=== PATIENT | female | born 1945 | race Caucasian/White ===

== ENCOUNTER 2023-04-09 14:02 | Emergency (ER) | payer OTHER ==
[2023-04-09] MEDS ORDERED: HYDROCODONE/APAP 10/325 TAB ONE (16:07)
--- NOTE | 2023-04-09 16:33 | RAD REPORT ---
EXAM DESCRIPTION: CTSpine Lumbar Wo Con04/09/2023 4:13 pm CLINICAL HISTORY: Back pain numbness COMPARISON: None TECHNIQUE: Computed axial tomography lumbar spine was obtained with coronal and sagittal reconstruct ion. All CT scans are performed using dose optimization technique as appropriate and may include automated exposure control or mA/KV adjustment according to patient size. FINDINGS: Mild compression deformity L1 vertebral body probably chronic. Vacuum phenomena involves most of the discs. Slight posterior subluxation L1 on L2. Mild spondylosis L1-2 Mild moderate spondylosis L2-3 Disc bulge, ligamentum flavum and facet hypertrophy L3-4. Thecal sac measures 5.5 millimeters. Modera te narrowing of the right mild narrowing left neural foramina Mild anterior subluxation L4 on L5. Disc bulge, ligamentum flavum and facet hypertrophy. The thecal s ac measures 4 millimeters. Right lateral disc herniation. Marked narrowing right neural foramina Disc bulge and facet hypertrophy L5-S1. Moderate to marked narrowing of the neural foramina. Epidural lipomatosis. Thecal sac measures approximately 4 millimeters transversely. IMPRESSION: Spondylosis L3-4 resulting in moderate to marked central spinal stenosis. Mild anterior subluxation L4 on L5. Spondylosis. Marked central spinal stenosis L4-5 Right lateral disc herniation L4-5 Spondylosis L5-S1 in combination with epidural lipomatosis result central spinal stenosis Nonemergent MRI would be helpful for further evaluation
--- NOTE | 2023-04-09 16:38 | RAD REPORT ---
EXAM DESCRIPTION: CT - Pelvis Wo Cont - 04/09/2023 4:16 pm CLINICAL HISTORY: Right hip pain and numbness COMPARISON: None. TECHNIQUE: Computed axial tomography of the pelvis was obtained. Coronal and sagittal reconstruction performed All CT scans are performed using dose optimization technique as appropriate and may include automated exposure control or mA/KV adjustment according to patient size. FINDINGS: No fracture is noted. No dislocation No significant hip joint effusion. No significant musculature or subcutaneous abnormality Mild osteoarthritis involves the hips IMPRESSION: No fracture seen
--- NOTE | 2023-04-09 17:14 | ER ---
Nurse's Notes [facility] Name: Rosa Snowden Age: 77 yrs Sex: Female : 1945 Arrival Date: 04/09/2023 Time: 14:02 Bed 17 Private MD: Diagnosis: Spinal stenosis, lumbosacral region;Lumbago with sciatica Presentation: 04/09 14:10 Chief complaint: Patient states: "I have sever spinal stenosis and my body is just cm10 shutting down from the bottom up. I have a 2inch separation on my right hip and my butt cheek is hurting.". Coronavirus screen: Vaccine status: Patient reports receiving the 2nd dose of the covid vaccine. Ebola Screen: Patient denies travel to an Ebola-affected area in the 21 days before illness onset. No symptoms or risks identified at this time. Initial Sepsis Screen: Does the patient meet any 2 criteria? No. Patient's initial sepsis screen is negative. Does the patient have a suspected source of infection? No. Patient's initial sepsis screen is negative. Risk Assessment: Do you want to hurt yourself or someone else? Patient reports no desire to harm self or others. Onset of symptoms was April 09, 2023. 14:10 Method Of Arrival: Wheelchair cm10 14:10 Acuity: AMY 3 cm10 Triage Assessment: 14:13 General: Appears in no apparent distress. comfortable, Behavior is calm, cooperative. cm10 Pain: Complains of pain in right gluteus karo and low back area. 14:14 Neuro: No deficits noted. Level of Consciousness is awake, alert, obeys commands, cm10 Oriented to person, place, time, situation. Respiratory: No deficits noted. Airway is patent Respiratory effort is even, unlabored, Respiratory pattern is regular, symmetrical. Musculoskeletal: No deficits noted. Historical: - Allergies: 14:12 Codeine; cm10 14:12 Demerol; cm10 - PMHx: 14:12 spinal stenosis; High Cholesterol; Hypertensive disorder; Hypothyroidism; cm10 - PSHx: 14:12 Appendectomy; Total abdominal hysterectomy; cm10 - Immunization history:: Adult Immunizations unknown. - Social history:: Smoking status: Patient denies any tobacco usage or history of. Screenin:[address] [facility] ED Fall Risk Assessment (Adult) Score/Fall Risk Level 0 - 2 = Low Risk. Abuse eh3 screen: Denies threats or abuse. Denies injuries from another. Nutritional screening: No deficits noted. Tuberculosis screening: No symptoms or risk factors identified. Assessment: 15:44 General: Appears in no apparent distress. uncomfortable, Behavior is calm, cooperative, eh3 appropriate for age. Pain: Complains of pain in right gluteus karo and low back area. Neuro: Level of Consciousness is awake, alert, obeys commands, Oriented to person, place, time, situation. Cardiovascular: Capillary refill < 3 seconds Patient's skin is warm and dry. Respiratory: Airway is patent Respiratory effort is even, unlabored, Respiratory pattern is regular, symmetrical. GI: Abdomen is round non-distended. Derm: Skin is pink, warm \\T\\ dry. Musculoskeletal: Circulation, motion, and sensation intact. 16:45 Reassessment: Patient appears in no apparent distress at this time. Patient and/or eh3 family updated on plan of care and expected duration. Pain level reassessed. Patient is alert, oriented x 3, equal unlabored respirations, skin warm/dry/pink. Vital Signs: 14:10 BP 152 / 63; Pulse 59; Resp 18 S; Temp 97.9; Pulse Ox 99% on R/A; Weight 81.19 kg; cm10 Height 4 ft. 11 in. ; Pain 10/10; 16:45 BP 146 / 66; Pulse 58; Resp 18; Pulse Ox 98% on R/A; eh3 14:10 Body Mass Index 36.15 (81.19 kg, 149.86 cm) cm10 14:10 Pain Scale: Adult cm10 ED Course: 14:05 Patient arrived in ED. mr 14:12 Triage completed. cm10 14:15 Arm band placed on Patient placed in an exam room, on a stretcher. cm10 14:21 Rob Shetty MD is Attending Physician. rn 14:22 Jenni Rene PA-C is PHCP. sb4 14:22 Rob Shetty MD is Attending Physician. sb4 15:44 Shae Grant, MIREILLE is Primary Nurse. eh3 15:44 Patient has correct armband on for positive identification. Bed in low position. Call eh3 light in reach. Side rails up X2. Provided Education on: Use of call blake. Pulse ox on. NIBP on. 16:15 CT Lumbar Spine Wo Con In Process Unspecified. EDMS 16:15 CT Pelvis wo Cont In Process Unspecified. EDMS 17:12 Adriano Torres DO is Referral Physician. sb4 17:36 No provider procedures requiring assistance completed. Patient did not have IV access eh3 during this emergency room visit. Administered Medications: 16:00 Drug: [place] PO 10 mg-325 mg 1 tabs Route: PO; eh3 16:52 Follow up: Response: No adverse reaction eh3 17:00 Drug: Dexamethasone IM 10 mg Route: IM; Site: right ventrogluteal; eh3 17:35 Follow up: Response: No adverse reaction eh3 17:00 Drug: Ketorolac IM 30 mg Route: IM; Site: right ventrogluteal; eh3 17:35 Follow up: Response: No adverse reaction eh3 Medication: 17:36 VIS not applicable for this client. eh3 Outcome: 17:13 Discharge ordered by MD. sb4 17:36 Discharged to home via wheelchair. eh3 17:36 Condition: stable 17:36 Discharge instructions given to patient, Instructed on discharge instructions, follow up and referral plans. medication usage, Demonstrated understanding of instructions, follow-up care, medications, Prescriptions given X 3. 17:37 Patient left the ED. eh3 Signatures: Dispatcher [employer] MICHAELMT Ari Chantell Rob Vieira MD MD rn Hall, Erin, RN RN eh3 Jenni Rene PAJaquiC PA-Sena sb4 Aneta Kang RN RN cm10 Corrections: (The following items were deleted from the chart) 14:15 14:13 Pain: Complains of pain in right gluteus karo cm10 cm10
--- NOTE | 2023-04-09 17:14 | EDPHYS ---
Physician Documentation [facility] Name: Rosa Snowden Age: 77 yrs Sex: Female : 1945 Arrival Date: 04/09/2023 Time: 14:02 Bed 17 Private MD: ED Physician Rob Shetty HPI: 04/09 17:20 This 77 yrs old Female presents to ER via Wheelchair with complaints of Back Pain, sb4 Trouble Walking. 17:20 The patient presents with pain that is chronic, with no known mechanism of injury, and sb4 weakness, secondary to pain. The symptoms are located in the low back. Onset: The symptoms/episode began/occurred and became worse today. The pain radiates to the right leg and left leg. Associated signs and symptoms: Pertinent positives: numbness, weakness, Pertinent negatives: incontinence. The problem was sustained from a chronic condition, degenerative joint disease, the patient has known disc disease, without known cause. Modifying factors: The patient symptoms are alleviated by hydrocodone, rest, the patient symptoms are aggravated by standing, walking. The patient has experienced similar episodes in the past, chronically, but today's symptoms are worse, more painful. The patient has not recently seen a physician. 17:24 patient reports history of severe spinal stenosis. sees pain management. was receiving sb4 injections that were helping but her pain management doctor told her she could not have anymore until next year. she states her pain has become progressively worse, to the point where she feels she cannot walk and her legs go numb. she denies any bowel/bladder incontinence. Historical: - Allergies: 14:12 Codeine; cm10 14:12 Demerol; cm10 - PMHx: 14:12 spinal stenosis; High Cholesterol; Hypertensive disorder; Hypothyroidism; cm10 - PSHx: 14:12 Appendectomy; Total abdominal hysterectomy; cm10 - Immunization history:: Adult Immunizations unknown. - Social history:: Smoking status: Patient denies any tobacco usage or history of. ROS: 17:24 Constitutional: Negative for fever, chills, and weight loss. sb4 17:24 Back: Positive for pain at rest, pain with movement, radiated pain, of the lumbar area, left low back and right low back. 17:24 Neuro: Positive for numbness, weakness, Negative for altered mental status, dizziness, syncope. 17:24 All other systems are negative. Exam: 17:24 Constitutional: This is a well developed, well nourished patient who is awake, alert, sb4 and in no acute distress. 17:24 Back: pain, that is moderate, of the lumbar area, left low back and right low back, ROM is painful, with all movement, normal spinal alignment noted, CVA tenderness, is absent, vertebral tenderness, is not appreciated, muscle spasm, is not present, Straight leg raises: pain bilaterally. 17:24 Neuro: Orientation: is normal, appropriate for stated age, to person, place, time \T\ situation. Mentation: is normal, appropriate for stated age, able to follow commands, Memory: is normal, appropriate for stated age, Cranial nerves: grossly normal, is grossly normal based on the patient's age, no acute changes, Cerebellar function: is grossly normal, is grossly normal based on the patient's age, Motor: is normal, is grossly normal based on the patient's age, no acute changes, moves all fours, Sensation: is normal, no obvious gross deficits, Gait: limited by pain. Vital Signs: 14:10 BP 152 / 63; Pulse 59; Resp 18 S; Temp 97.9; Pulse Ox 99% on R/A; Weight 81.19 kg; cm10 Height 4 ft. 11 in. ; Pain 10/10; 16:45 BP 146 / 66; Pulse 58; Resp 18; Pulse Ox 98% on R/A; eh3 14:10 Body Mass Index 36.15 (81.19 kg, 149.86 cm) cm10 14:10 Pain Scale: Adult cm10 MDM: 14:21 Patient medically screened. rn 17:11 Data reviewed: vital signs, nurses notes, radiologic studies, and as a result, I will sb4 discharge patient. Care significantly affected by the following chronic conditions: Hypertension. 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 Special discussion: Based on the history and exam findings, there is no indication for further emergent testing or inpatient evaluation. I discussed with the patient/guardian the need to see the roof cement and paint maker helper for further evaluation of the symptoms. 17:24 Differential diagnosis: chronic back pain, Fracture Joint Injury Ligament Injury sb4 Neoplasm Osteoarthritis Osteoporosis ruptured disc, spinal injury, sprain, vertebral fracture. 17:24 Independent interpretation of the following test(s) in the Emergency Department CT sb4 Scan: My interpretation is my interpretation of the CT images are no acute fracture. 04/09 15:50 Order name: CT Lumbar Spine Wo Con; Complete Time: 16:34 sb4 04/09 15:50 Order name: CT Pelvis wo Cont; Complete Time: 16:39 sb4 04/09 16:40 Order name: Misc. Order: ambulate; Complete Time: 17:15 sb4 Administered Medications: 16:00 Drug: [place] PO 10 mg-325 mg 1 tabs Route: PO; eh3 16:52 Follow up: Response: No adverse reaction eh3 17:00 Drug: Dexamethasone IM 10 mg Route: IM; Site: right ventrogluteal; eh3 17:35 Follow up: Response: No adverse reaction eh3 17:00 Drug: Ketorolac IM 30 mg Route: IM; Site: right ventrogluteal; eh3 17:35 Follow up: Response: No adverse reaction eh3 Disposition: 17:56 Co-signature as Attending Physician, Rob Shetty MD I reviewed the patient's care rn provided by the Advanced Practice Provider and agree with the diagnosis and treatment plan. Disposition Summary: 04/09/23 17:13 Discharge Ordered Location: Home sb4 Problem: an acute exacerbation sb4 Symptoms: have improved sb4 Condition: Stable sb4 Diagnosis - Spinal stenosis, lumbosacral region sb4 - Lumbago with sciatica sb4 Followup: sb4 - With: Adriano Torres DO - When: 2 - 3 days - Reason: Recheck today's complaints, Continuance of care, Re-evaluation by your physician Discharge Instructions: - Discharge Summary Sheet sb4 - Fall Prevention in the Home, Adult sb4 - Spinal Stenosis sb4 - Managing Chronic Back Pain sb4 Forms: - Medication Reconciliation Form sb4 - Thank You Letter sb4 - Antibiotic Education sb4 - Prescription Opioid Use sb4 - Patient Portal Instructions sb4 - Leadership Thank You Letter sb4 Prescriptions: - Cyclobenzaprine 10 mg Oral Tablet - take 1 tablet by ORAL route every 8 hours As needed; 30 tablet; Refills: 0, sb4 Product Selection Permitted - Diclofenac Sodium 75 mg Oral Tablet Sustained Release - take 1 tablet by ORAL route 2 times per day; 30 tablet; Refills: 0, Product sb4 Selection Permitted - Medrol (Mehdi) 4 mg Oral Tablets, Dose Pack - take 1 tablet by ORAL route as directed - follow package instructions; 1 sb4 packet; Refills: 0, Product Selection Permitted Signatures: Dispatcher [employer] Rob Hernandez MD MD rn Hall, Erin, RN RN 3 Jenni Rene, PA-Sena PA-C sb4 Aneta Kang RN RN cm10
[2023-04-09 17:43] VITALS: TEMP 97.9
[2023-04-09 17:45] VITALS: BP 146/66; O2SAT 98
== END 2023-04-09 17:37 | disposition home or self-care (01) ==
LOC: ER 14:02
DX: M48.07 Spinal stenosis, lumbosacral region (principal); M54.40 Lumbago with sciatica, unspecified side
CPT/HCPCS: 72131; 72192; 96372; 99284

== ENCOUNTER 2024-07-15 15:20 | Emergency (ER) | payer OTHER ==
--- NOTE | 2024-07-15 17:23 | RAD REPORT ---
EXAMINATION: CT HEAD WITHOUT CONTRAST CT CERVICAL SPINE WITHOUT CONTRAST CLINICAL INDICATION: Female, 79 years old. PAIN TECHNIQUE: Axial CT images from the skull base to the vertex without intravenous contrast. Axial CT i mages through the cervical spine were obtained without intravenous contrast. Sagittal and coronal reformatted images were created from the data set. Coronal and sagittal reformatted images were creat ed from the data set. One or more of the following dose reduction techniques were used: Automated exposure control, adjustment of the mA and/or kV according to patient size, and/or iterative reconstr uction. Unless otherwise specified, incidental findings do not require dedicated imaging follow-up. [id number]. COMPARISON: No prior exam. FINDINGS: Head: INTRACRANIAL: No acute intracranial hemorrhage. No hydrocephalus. No mass effect or midline shift. Mo derate chronic small vessel ischemic changes. VASCULATURE: No visualized abnormalities in the arteries or dural venous sinuses. SCALP/SKULL: No significant soft tissue or osseous abnormalities. Trace mastoid fluid bilaterally. SINUSES: Air-fluid level in right maxillary sinus. Mild ethmoid air cell thickening. Cervical spine: ALIGNMENT: The cervical spine has normal alignment without scoliosis or spondylolisthesis. BONE: Vertebral body heights are maintained. No aggressive osseous lesions. DEGENERATIVE CHANGES: None significant. SOFT TISSUE: No significant abnormalities in the soft tissue of the neck. The visualized lung apices are clear. IMPRESSION: No acute intracranial abnormality. No acute fracture or traumatic malalignment of the cervical spine.
--- NOTE | 2024-07-15 17:34 | RAD REPORT ---
EXAM: CT CHEST, ABDOMEN AND PELVIS WITHOUT CONTRAST CLINICAL INDICATION: Female, 79 years old MARKELL TECHNIQUE: CT chest, abdomen and pelvis was performed, without IV contrast, as per department protoco l. Axial, sagittal and coronal reconstructions were obtained. One or more of the following dose reduction techniques were used: Automated exposure control, adjustment of the mA and/or kV according to the patient size, and/or iterative reconstruction. Unless otherwise specified, incidental findings do not require dedicated imaging follow-up. [id number]. COMPARISON: No prior exam. FINDINGS: The lack of intravenous contrast limits the sensitivity of this exam for evaluation of solid visceral organs, vascular structures, and retroperitoneum. Chest: LOWER NECK/CHEST WALL: Visualized thyroid gland and soft tissues are normal. LUNGS AND AIRWAYS: Airways are clear. No evidence of airspace or interstitial process. No nodules. PLEURA: No pleural effusion. No pneumothorax. Hemidiaphragms are normally positioned. MEDIASTINUM AND LYMPH NODES: No mediastinal mass or fluid collection. Normal size mediastinal, hilar, and axillary lymph nodes. Small hiatal hernia. THORACIC AORTA: Normal caliber and configuration. PULMONARY ARTERIES: Normal caliber. HEART: Mild coronary calcifications. Mitral annular calcifications. Abdomen/Pelvis LIVER: Normal in size and contour. No focal lesion. GALLBLADDER/BILE DUCTS: No biliary ductal dilatation. PANCREAS: No mass, ductal dilation, or elisabeth-pancreatic fluid. SPLEEN: Normal size. No focal lesion. ADRENALS: Normal; no mass. KIDNEYS AND URETERS: Normal size and contour. No hydronephrosis. GASTROINTESTINAL TRACT: Stomach is non-dilated. Small bowel has normal course and caliber. No colonic wall thickening or pericolonic inflammatory changes. PERITONEUM: No free fluid. LYMPH NODES: No lymphadenopathy. ABDOMINAL AORTA AND OTHER VESSELS: Normal caliber aorta and IVC. URINARY BLADDER: Normal contour. REPRODUCTIVE ORGANS: No pathologic process. Hysterectomy MUSCULOSKELETAL: No acute or suspicious osseous abnormality. Chronic superior end plate deformity at L1. Grade 1 anterolisthesis of L4 and L5. ADDITIONAL FINDINGS: None IMPRESSION: No acute or significant abnormalities in the chest, abdomen, or pelvis.
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
--- NOTE | 2024-07-15 17:44 | ER ---
Nurse's Notes [facility] Name: Rosa Snowden Age: 79 yrs Sex: Female : 1945 Arrival Date: 07/15/2024 Time: 15:20 Bed IW1 Private MD: Diagnosis: Fall on same level from slipping, tripping and stumbling without subsequent striking against object;Unspecified injury of head, initial encounter;Low back pain;Chest pain, unspecified-right lateral chest Presentation: 07/15 16:29 Chief complaint: Patient states: L leg, L arm, R shoulder pain that began at 1200 after ss falling inside bus. Denies LOC. Coronavirus screen: Client denies travel out of the [place] in the last 14 days. Ebola Screen: Patient denies exposure to infectious person. Patient denies travel to an Ebola-affected area in the 21 days before illness onset. Initial Sepsis Screen: Does the patient meet any 2 criteria? No. Patient's initial sepsis screen is negative. Does the patient have a suspected source of infection? No. Patient's initial sepsis screen is negative. Risk Assessment: Do you want to hurt yourself or someone else? Patient reports no desire to harm self or others. Onset of symptoms was July 15, 2024. 16:29 Method Of Arrival: Ambulatory ss 16:29 Acuity: AMY 3 ss Historical: - Allergies: 16:32 Codeine; ss 16:32 Demerol; ss - PMHx: 16:32 High Cholesterol; Hypertensive disorder; Hypothyroidism; spinal stenosis; ss - PSHx: 16:32 Appendectomy; Total abdominal hysterectomy; ss Screenin:29 Abuse screen: Denies threats or abuse. Denies injuries from another. Nutritional ss screening: No deficits noted. Tuberculosis screening: Never had TB. Assessment: 16:29 General: Appears uncomfortable, Behavior is calm, cooperative. Pain: Complains of pain ss in left mid back and thoracic area and low back area and pelvis and right hip and left hip and left iliac crest and right iliac crest and right lateral anterior chest and right lateral posterior chest Pain currently is 8 out of 10 on a pain scale. Quality of pain is described as aching, tender. Neuro: Level of Consciousness is awake, alert, obeys commands, Oriented to person, place, time, situation. Respiratory: Airway is patent Respiratory effort is even, unlabored, Respiratory pattern is regular, symmetrical. Derm: Skin is pink, warm \T\ dry. normal. Vital Signs: 16:29 BP 167 / 90; Pulse 83; Resp 18; Temp 97.4(TE); Pulse Ox 98% on R/A; Weight 79.83 kg; ss Height 4 ft. 11 in. ; Pain 8/10; 16:29 Body Mass Index 35.55 (79.83 kg, 149.86 cm) ss 16:29 Pain Scale: Adult ss ED Course: 15:29 Patient arrived in ED. al6 16:29 Patient has correct armband on for positive identification. Bed in low position. ss 16:32 Triage completed. ss 16:32 Arm band placed on right wrist. ss 16:35 Erma Santos FNP-C is [facility]. kb 16:35 Leroy Amador MD is Attending Physician. kb 17:15 Head C Spine Mpr Wo Con In Process Unspecified. EDMS 17:16 Chest Abd Pelvis Wo Con In Process Unspecified. EDMS 18:52 Yaneth Green, RN is Primary Nurse. ss 18:52 No provider procedures requiring assistance completed. Patient did not have IV access ss during this emergency room visit. Administered Medications: No medications were administered Medication: 16:29 VIS not applicable for this client. ss Outcome: 17:44 Discharge ordered by . kb 18:52 Discharged to home ambulatory, ss 18:52 Condition: good 18:52 Discharge instructions given to dc instructions given by SERGEY Ritchie 18:53 Patient left the ED. ss Signatures: Dispatcher [employer] EDLA Erma Santos FNP-C FNP-Ckb Blanchard, Shelby, RN RN Christine Escobar al
[2024-07-15 20:21] VITALS: BP 167/90; TEMP 97.4; O2SAT 98
== END 2024-07-15 18:53 | disposition home or self-care (01) ==
LOC: ER 15:20
DX: S09.90XA Unspecified injury of head, initial encounter (principal); M54.50 Low back pain, unspecified; R07.9 Chest pain, unspecified; W01.0XXA Fall on same level from slipping, tripping and stumbling without subsequent striking against object, initial encounter; Y92.811 Bus as the place of occurrence of the external cause
CPT/HCPCS: 70450; 71250; 72125; 74176; 99282